=== PATIENT | female | born 1955 | race Caucasian/White ===

== ENCOUNTER 2016-08-12 06:15 | Day surgery (SDC) | payer OTHER ==
[2016-08-10 19:07] VITALS: BMI 28.8
--- NOTE | 2016-08-11 14:56 | HP ---
- Patient Scheduled date of Surgery: 08/12/16 Scheduled Surgical Procedure: Phacoemulsification and cataract extraction with PCIOL Affected Eye: Right Chief Complaint (Indication for surgery): Decreased vision affecting ADLs - Ocular History Other Eye History: Other (pvd OD, HZV OS) Eye Medications: vigamox 3/0 , prolensa 1/0 Previous Eye Surgery: none - Medical History Illnesses: Diabetes Current Medications: Ambulatory Orders Empagliflozin [Jardiance] 25 mg PO DAILY 08/10/16 Glimepiride 2 mg PO BID 08/10/16 Metformin HCl [Glucophage] 1,000 mg PO BID 08/10/16 Allergies/Adverse Reactions: Allergies Allergy/AdvReac Type Severity Reaction Status Date / Time Penicillins Allergy Verified 08/10/16 18:57 Ocular Examination - Best Corrected Visual Acuity Distance: Right eye: 20/40 Distance: Left eye: 20/20 - External/Slit Lamp Examination Abnormalities: decreased TBUT - Intraocular Pressure Intraocular Pressure - Right eye: 15 Intraocular Pressure-Left eye: 15 - Lens Lens: 2-3+ NS 2+ PSC - Vitreous/Retina Vitreous/Retina: c:D 0.15 m/v wnl + pVD, p wnl - Special Examination M - Right eye: -1.00-1.25 x 075 M - Left eye: +0.25-0.50 x 105 K - Right eye: 44.25/44/75 x 020 K - Left eye: 44/44.50 x 070 AL - Right eye: 23.71 AL - Left eye: 23.69 IOL bag: +21.5 d hoya 251 IOL sulcus: +20.5 d hoya 231 IOL AC: +18.0 d mta 4uo - Impression Impression: Cataract Right Eye - Plan Plan: Phacoemulsification and cataract extraction - IOL Right eye Post-hospital care will be provided in office on: 08/13/16
--- NOTE | 2016-08-11 15:21 | HP ---
History & Physical Update - History History: No Change - Physical Physical: No Change - Assessment Assessment: No Change - Plan Plan: No Change
[~2016-08-12 06:15] MED LIST: ACETAMINOPHEN 325 MG TABLET (FP) PO PRN; CHONDROITIN SU A/HYALUR SOD 1 KIT IO ONE; TOBRAMYCIN/DEXAMETHASONE OPHTH. OINTMENT 1 TUBE TP ONE
[2016-08-12] MEDS: PHENYLEPHRINE 2.5% OPHTH SOLN 15 ML BOTTLE ONE ×3 (06:40→07:10)
[2016-08-12] MEDS: DICLOFENAC SODIUM 0.1% OPHTHALMIC 2.5ML BOTTLE ONE ×3 (06:40→07:10)
[2016-08-12] MEDS: TROPICAMIDE 1% OPHTH SOLN 15 ML BOTTLE ONE ×3 (06:40→07:10)
[2016-08-12] MEDS: CIPROFLOXACIN 0.3% EYE DROPS 5 ML BOTTLE ONE ×3 (06:40→07:10)
[2016-08-12] MEDS ORDERED: DICLOFENAC SODIUM 0.1% OPHTHALMIC 2.5ML BOTTLE OP SCH (06:45)
[2016-08-12] MEDS ORDERED: PHENYLEPHRINE 2.5% OPHTH SOLN 15 ML BOTTLE OP SCH (06:45)
[2016-08-12] MEDS ORDERED: CIPROFLOXACIN HCL 0.3% OPHTH 2.5ML BOTTLE OP SCH (06:45)
[2016-08-12] MEDS ORDERED: TROPICAMIDE 1% OPHTH SOLN 15 ML BOTTLE OP SCH (06:45)
[2016-08-12] MEDS ORDERED: SUCCINYLCHOLINE CHLORIDE 200 MG/10 ML VIAL ONE (07:12)
[2016-08-12] MEDS ORDERED: EPINEPHrine/PF 1 MG/1 ML (1:1,000) AMPULE ONE (07:19)
[2016-08-12] MEDS ORDERED: TOBRAMYCIN/DEXAMETHASONE OPHTH. OINTMENT 1 TUBE ONE (07:19)
[2016-08-12] MEDS ORDERED: POVIDONE-IODINE 5% OPHTHALMIC PREP 30 ML SOLUTION ONE (07:20)
[2016-08-12] MEDS ORDERED: BSS (NA/CA/MG/K) BALANCED SALT SOLUTION OPHTH SOLN 15 ML BOTTLE ONE (07:20)
[2016-08-12] MEDS ORDERED: LIDOCAINE HCL/PF 1% SDV 5ML VIAL ONE (07:20)
[2016-08-12] MEDS ORDERED: LIDOCAINE HCL 2% JELLY (5 ML/TUBE) ONE (07:20)
[2016-08-12] MEDS ORDERED: LIDOCAINE HCL 2% JELLY (5 ML/TUBE) TP ONE (07:35)
[2016-08-12] MEDS ORDERED: MIDAZOLAM HCL 2 MG/2 ML SINGLE DOSE VIAL ONE (07:42)
[2016-08-12] MEDS ORDERED: LIDOCAINE HCL 1% PRESERVATIVE FREE - 30ML VIAL IO ONE (07:53)
[2016-08-12] MEDS ORDERED: CHONDROITIN SU A/HYALUR SOD 1 KIT IO ONE ×2 (07:54→08:02)
[2016-08-12] MEDS ORDERED: TOBRAMYCIN/DEXAMETHASONE OPHTH. OINTMENT 1 TUBE TP ONE (08:12)
--- NOTE | 2016-08-12 08:19 | OP ---
Ophthalmology Operative Note Pre-Operative Diagnosis: Cataract Affected Eye: Right Operation: Phacoemulsification and cataract extraction with PCIOL Findings: PSC cataract right eye Post-Operative Diagnosis: Same as Pre-op Accounts Payable Specialist: None Anesthesiologist: Kate Sue Anesthesia: Topical Specimens Removed: none Estimated blood loss: none Drains & Tubes with Location: none Operative Report Dictated: No
[2016-08-12 10:08] VITALS: TEMP 97.8
[2016-08-12 10:15] VITALS: BP 109/68; PULSE 80
--- NOTE | 2016-08-12 12:48 | OP ---
DATE OF OPERATION: 08/12/2016 PREOPERATIVE DIAGNOSIS: Posterior subcapsular cataract, right eye. POSTOPERATIVE DIAGNOSIS: Posterior subcapsular cataract, right eye. PROCEDURE: Phacoemulsification and cataract extraction with insertion of posterior chamber intraocular lens, right eye. SURGEON: Emperatriz Khalil MD AUTO WHEEL ALIGNMENT SPECIALIST: None. ANESTHESIA: Topical. CARBON FURNACE OPERATOR HELPER: Kate Sue CRNA OPERATIVE PROCEDURE: The patient received TetraVisc eye drops and was brought to the operating room and prepped and draped in the usual sterile fashion under gentle sedation. The ophthalmic Betadine was instilled into the inferior fornix, and the lashes were taped out of the surgical field. An eyelid speculum was placed into the right eye. A paracentesis was made in superior clear cornea at the limbus. Then, 0.5 mL of 1% nonpreserved lidocaine was injected into the anterior chamber, and viscoelastic material was instilled into the anterior chamber via the paracentesis. A 2.4-mm keratome was then used to create the main incision in temporal clear cornea at the limbus. A continuous curvilinear capsulorrhexis was performed using a cystotome and Utrata forceps. Hydrodissection of the lens cortex was performed using BSS on a cannula until the nucleus was noted to be freely rotating. The phacoemulsification tip was then inserted via the main wound and used to sculpt two perpendicular grooves into the lens nucleus. The nucleus was then cracked into four quadrants using two instruments. Each quadrant was lifted out of the capsule into the iris plane and individually phacoemulcified. The remaining cortical material was then aspirated using the irrigation and aspiration port. The capsular bag was inflated using Provisc and a preloaded Hoya lens, model 251, power +21.5 diopters for myopia was injected into the capsular bag and centered using a Sinskey hook. The residual viscoelastic material was removed from the anterior chamber using irrigation and aspiration. The wound edges were hydrated using BSS. The wound was tested for leakage and found to be watertight. Therefore, 1 drop of ciprofloxacin and 1 drop of Pred Forte were instilled into the inferior fornix, and Maxitrol ointment was placed in the eye. The speculum was removed from the eye, and the eyelid was closed. A sterile dressing and shield were placed over the eye, and the patient was transferred to the recovery room in stable condition, told to follow up in one day. EMPERATRIZ KHALIL M.D. [id number]
== END 2016-08-12 09:30 | disposition home or self-care (01) ==
LOC: JASU-SURG 06:15
PROVIDERS: ATTEND Ophthalmology
PROC: 08RJ3JZ Replacement of Right Lens with Synthetic Substitute, Percutaneous Approach (ICD-10-PCS; principal; 2016-08-12 07:30)
DX: H25.041 Posterior subcapsular polar age-related cataract, right eye (principal)